=== PATIENT | male | born 1985 | race Caucasian/White ===

== ENCOUNTER 2018-10-19 11:02 | Emergency (ER) | payer SELFPAY ==
[2018-10-19 11:07] VITALS: BP 125/80
[2018-10-19] MEDS ORDERED: DIPH/PERTUSS(ACELL)/TETANUS VAC/PF 0.5 ML SYR (>=10YO) IM ONE (11:12)
[2018-10-19] MEDS ORDERED: DOXYCYCLINE HYCLATE 100 MG TABLET PO ONE (11:21)
[2018-10-19] MEDS ORDERED: IBUPROFEN 800 MG TABLET PO ONE (11:27)
--- NOTE | 2018-10-19 11:27 | ER Document Report ---
HPI - HPI Patient complains to provider of: Puncture wound right arm Time Seen by Provider: 10/19/18 11:12 Onset: Yesterday Onset/Duration: Sudden Quality of pain: Achy Severity: Moderate Pain Level: 4 Context: 33-year-old male presented to ED for stabbing himself in the right arm yesterday with a piece of metal wire. He states he pulled the wire out and has not had any drainage or anything but he does need a tetanus shot. Patient is alert and oriented respirations regular and unlabored speaking in full sentences. He came to the emergency room because he thought he needed antibiotics and a tetanus shot. 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 Associated Symptoms: Other - Puncture wound right forearm Exacerbated by: Movement Relieved by: Denies Similar symptoms previously: No Recently seen / treated by doctor: No - ROS ROS below otherwise negative: Yes - CONSTITUTIONAL Constitutional: DENIES: Fever, Chills - EENT EENT: DENIES: Sore Throat, Ear Pain, Nasal Drainage-Clear, Nasal Drainage- Purulent, Congestion, Eye problems - NEURO Neurology: DENIES: Headache, Weakness, Vision blurred, Dizzinesss / Vertigo - CARDIOVASCULAR Cardiovascular: DENIES: Chest pain - RESPIRATORY Respiratory: DENIES: Trouble Breathing, Coughing - GASTROINTESTINAL Gastrointestinal: DENIES: Abdominal Pain, Nausea, Patient vomiting, Diarrhea, Constipation, Black / Bloody Stools - URINARY Urinary: DENIES: Dysuria, Urgency, Frequency - REPRODUCTIVE Reproductive: DENIES: : - MUSCULOSKELETAL Musculoskeletal: REPORTS: Extremity pain. 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 Lives with: Family Family History: Reviewed & Not Pertinent Patient has suicidal ideation: No Patient has homicidal ideation: No - Past Medical History Cardiac Medical History: Reports: None Pulmonary Medical History: Reports: None EENT Medical History: Reports: None Neurological Medical History: Reports: Other - Spinal meningitis Endocrine Medical History: Reports: None Renal/ Medical History: Reports: None Malignancy Medical History: Reports None GI Medical History: Reports: None Musculoskeletal Medical History: Reports None Skin Medical History: Reports None Psychiatric Medical History: Reports: Hx Depression - anxiety PTSD, Hx Post Traumatic Stress Disorder, Other - Panic attacks [place] phobia Traumatic Medical History: Reports: None Infectious Medical History: Reports: None Surgical Hx: Negative Past Surgical History: Reports: None - Immunizations Immunizations up to date: Yes Hx Diphtheria, Pertussis, Tetanus Vaccination: Yes - 10/19/2018 Vertical Provider Document - CONSTITUTIONAL Agree With Documented VS: Yes Exam Limitations: No Limitations General Appearance: WD/WN, No Apparent Distress - INFECTION CONTROL TRAVEL OUTSIDE OF THE [place] IN LAST 30 DAYS: No - HEENT HEENT: Atraumatic, Normal ENT Exam, Normocephalic, PERRLA - NECK Neck: Normal Inspection, Supple - RESPIRATORY Respiratory: Breath Sounds Normal, No Respiratory Distress - CARDIOVASCULAR Cardiovascular: Regular Rate, Regular Rhythm - MUSCULOSKELETAL/EXTREMETIES Musculoskeletal/Extremeties: MAEW, FROM, Tender - Right forearm, No Edema - NEURO Level of Consciousness: Awake, Alert, Appropriate Motor/Sensory: No Motor Deficit, No Sensory Deficit - DERM Integumentary: Warm, Dry, No Rash Notes: Puncture wound to right forearm no redness no inflammation no swelling entrance wound no accident wound Course - Re-evaluation Re-evalutation: 10/19/18 11:26 Patient was treated with doxycycline and tetanus immunization. Patient discharged home with prescription for doxycycline. Patient given instructions on cleaning arm and warm packs. Patient instructed to follow-up with primary doctor or emergency room for any redness swelling inflammation or fever to the area. - Vital Signs Vital signs: Temp Pulse Resp BP Pulse Ox 97.5 F 72 16 125/80 100 10/19/18 11:06 10/19/18 11:06 10/19/18 11:06 10/19/18 11:06 10/19/18 11:06 Discharge - Discharge Clinical Impression: Puncture wound of right forearm Qualifiers: Encounter type: initial encounter Qualified Code(s): S51.831A - Puncture wound without foreign body of right forearm, initial encounter Condition: Stable Disposition: HOME, SELF-CARE Instructions: Family Physicians / Practices Additional Instructions: Puncture Wound You have a puncture wound. Because these wounds often penetrate deeply beneath the skin, you must observe them carefully for complications. The wound has been examined for retained foreign material and for damage to tendons and nerves. The area should be rested and elevated for 24 hours. Then you can use the injured part -- if moving it is painfree. Punctures of the hand or foot may require splinting or crutches. The dressing should be changed daily until the wound is healed. Watch for signs of infection. Call the doctor immediately if redness, swelling, warmth, increasing pain, or wound drainage occur. If you develop numbness, persistent bleeding, or inability to move the injured area, please return for prompt re-evaluation. Epsom Salt Soaks Soak the wound area in a container of warm epsom salt water. If you can't get the wound area into a bucket or boo, use a folded towel soaked in the epsom salt solution and apply to the area. Use clean hot tap water (about the temperature of a very warm bath), mixing in about one (1) teaspoon for every pint of water. Two gallon --> 16 teaspoons Epsom Salts One gallon --> 8 teaspoons Epsom Salts Two quarts --> 4 teaspoons Epsom Salts One quart --> 2 teaspoons Epsom Salts Soak the wound for about 20 minutes while gently moving it around in the water. Repeat this four (4) times a day. Doxycycline Doxycycline (Vibramycin, Doryx) is an antibiotic of the tetracycline family. This type of drug is useful for infections of the respiratory tract and genital tract, and is sometimes used for intestinal infections. Unlike most tetracyclines, doxycycline can be taken with food. It is longer acting, and (usually) less prone to side effects than regular tetracycline. Tetracycline antibiotics can stain immature teeth and SHOULD NOT BE TAKEN BY CHILDREN, NURSING MOTHERS, OR WOMEN. Tetracyclines can make you more prone to sunburn. Abdominal cramping, nausea, and diarrhea are occasional side effects. Women may experience vaginal yeast infections. Call the doctor at once if you develop hives, itching, shortness of breath , or lightheadedness. Please protect yourself from the sun as doxycycline can cause you to sunburn. FOLLOW-UP CARE: If you have been referred to a physician for follow-up care, call the physician s office for an appointment as you were instructed or within the next two days. If you experience worsening or a significant change in your symptoms, notify the physician immediately or return to the Emergency Department at any time for re-evaluation. Prescriptions: Ibuprofen [Motrin 600 mg Tablet] 600 mg PO Q8HP PRN #20 tablet PRN Reason: Doxycycline Hyclate 100 mg PO BID #14 capsule Forms: Smoking Cessation Education, Return to Work
== END 2018-10-19 11:41 | disposition home or self-care (01) ==
LOC: ER 11:02
DX: S51.831A Puncture wound without foreign body of right forearm, initial encounter (principal); W26.8XXA Contact with other sharp object(s), not elsewhere classified, initial encounter; Y93.89 Activity, other specified; Y92.79 Other farm location as the place of occurrence of the external cause; F17.210 Nicotine dependence, cigarettes, uncomplicated; Z71.6 Tobacco abuse counseling; Z23 Encounter for immunization
CPT/HCPCS: 90471; 90715; 99283; 99406

== ENCOUNTER 2018-10-21 17:51 | Emergency (ER) | payer SELFPAY ==
[2018-10-21 18:09] VITALS: BP 136/89
--- NOTE | 2018-10-21 18:47 | ER Document Report ---
HPI - HPI Patient complains to provider of: Patient states he became very dizzy today at work Time Seen by Provider: 10/21/18 18:40 Onset: This afternoon Onset/Duration: Better Quality of pain: No pain Severity: None Pain Level: Denies Associated Symptoms: Other - Dizzy while outside working with hot and cold flash Exacerbated by: Denies Relieved by: Denies Similar symptoms previously: No Recently seen / treated by doctor: Yes - ROS ROS below otherwise negative: Yes - CONSTITUTIONAL Constitutional: DENIES: Fever, Chills - EENT EENT: DENIES: Sore Throat, Ear Pain, Nasal Drainage-Clear, Nasal Drainage- Purulent, Congestion, Eye problems - NEURO Neurology: REPORTS: Dizzinesss / Vertigo - While at work today. DENIES: Headache, Weakness, Vision blurred - RESPIRATORY Respiratory: DENIES: Trouble Breathing, Coughing - GASTROINTESTINAL Gastrointestinal: DENIES: Abdominal Pain, Nausea, Patient vomiting, Diarrhea, Constipation, Black / Bloody Stools - URINARY Urinary: DENIES: Dysuria, Urgency, Frequency - REPRODUCTIVE Reproductive: DENIES: :, Postmenopausal, Abnormal bleeding / discharge - MUSCULOSKELETAL Musculoskeletal: DENIES: Extremity pain, Back Pain, Neck Pain, Swelling - DERM Skin Color: Normal Skin Problems: None Past Medical History - General Information source: Patient - Social History Smoking Status: Current Every Day Smoker Cigarette use (# per day): Yes - Pack per day Smoking Education Provided: Yes - 4 minutes Frequency of alcohol use: Heavy Drug Abuse: None 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 Family History: Reviewed & Not Pertinent Patient has suicidal ideation: No Patient has homicidal ideation: No - Past Medical History Cardiac Medical History: Reports: None Pulmonary Medical History: Reports: None EENT Medical History: Reports: None Neurological Medical History: Reports: Other - Spinal meningitis Endocrine Medical History: Reports: None Renal/ Medical History: Reports: None Malignancy Medical History: Reports None GI Medical History: Reports: None Musculoskeletal Medical History: Reports None Skin Medical History: Reports None Psychiatric Medical History: Reports: Hx Anxiety, Hx Depression - [place] phobia, Hx Post Traumatic Stress Disorder Traumatic Medical History: Reports: None Infectious Medical History: Reports: None Surgical Hx: Negative Past Surgical History: Reports: None - Immunizations Immunizations up to date: Yes Hx Diphtheria, Pertussis, Tetanus Vaccination: Yes - 10/19/2018 Vertical Provider Document - CONSTITUTIONAL Agree With Documented VS: Yes Exam Limitations: No Limitations General Appearance: WD/WN - INFECTION CONTROL TRAVEL OUTSIDE OF THE [place] IN LAST 30 DAYS: No - HEENT HEENT: Atraumatic, Normal ENT Exam, Normocephalic, PERRLA - NECK Neck: Normal Inspection - RESPIRATORY Respiratory: Breath Sounds Normal - CARDIOVASCULAR Cardiovascular: Regular Rate, Regular Rhythm, No Murmur - GI/ABDOMEN Gastrointestinal: Abdomen Soft, Abdomen Non-Tender, No Organomegaly, Normal Bowel Sounds - MUSCULOSKELETAL/EXTREMETIES Musculoskeletal/Extremeties: MAEW, FROM, Non-Tender - NEURO Level of Consciousness: Awake Motor/Sensory: No Motor Deficit - DERM Integumentary: Warm, Dry. negative: Laceration - Puncture wound healing well no redness no drainage no signs or symptoms of infection patient was encouraged to just throw away the rest of the doxycycline and drink Gatorade Course - Re-evaluation Re-evalutation: 10/21/18 18:55 Patient was reeducated concerning doxycycline and the need to use sunscreen when outside. He was also we educated on if you are drinking and throwing up at night and then working outside in the sun you need to rehydrate with more than just plain water you need the electrolytes. Patient encouraged to drink Gatorade or Powerade 1-2 bottles a day while working outside in the sun. Patient was treated with Gatorade while in the emergency room. Vital signs are stable pulse regular no dizziness or any other discomfort while seen in the emergency room. Patient was discharged home. Patient states he does remember all of these instructions but he did not use Gatorade or sunscreen. Patient states after the days care he will follow instructions. - Vital Signs Vital signs: Temp Pulse Resp BP Pulse Ox 97.8 F 86 16 136/89 H 97 10/21/18 18:08 10/21/18 18:08 10/21/18 18:08 10/21/18 18:08 10/21/18 18:08 Discharge - Discharge Clinical Impression: Puncture wound of right forearm Qualifiers: Encounter type: subsequent encounter Qualified Code(s): S51.831D - Puncture wound without foreign body of right forearm, subsequent encounter Condition: Stable Disposition: HOME, SELF-CARE Instructions: Family Physicians / Practices Additional Instructions: You were seen today because you state you felt like he was going to pass out while at work today. You were concerned that this was a reaction to your doxycycline. You state that you drink alcohol every night and sometimes throw up from the alcohol. You drink water but do not drink any Gatorade or electrolytes during the day while you are working outside. You state that you did not use sunscreen as we discussed. You do not have any signs or symptoms of infection or reaction to the antibiotics. Please drink some Gatorade at least 1 or 2 bottles a day if you are working outside. If you have any nausea and vomiting after drinking alcohol at night please drink Gatorade. Please use the sunscreen as we discussed for at least the next 3-7 days while working outside to prevent sunburn. Please do not drink alcohol today but drink at least 2 Gatorade's today. FOLLOW-UP CARE: If you have been referred to a physician for follow-up care, call the physicians office for an appointment as you were instructed or within the next two days. If you experience worsening or a significant change in your symptoms, notify the physician immediately or return to the Emergency Department at any time for re-evaluation. Forms: Elevated Blood Pressure, Smoking Cessation Education, Return to Work
== END 2018-10-21 18:50 | disposition home or self-care (01) ==
LOC: ER 17:51
DX: S51.831D Puncture wound without foreign body of right forearm, subsequent encounter (principal); X58.XXXD Exposure to other specified factors, subsequent encounter; R42 Dizziness and giddiness; F17.210 Nicotine dependence, cigarettes, uncomplicated; Z71.6 Tobacco abuse counseling
CPT/HCPCS: 99283; 99406